=== PATIENT | female | born 1950 | race African-American/Black ===

== ENCOUNTER 2016-08-30 19:50 | Emergency (ER) | payer MEDICARE ==
--- NOTE | ~2016-08-30 | EKG ---
PATIENT: GABBY ROMAN UNIT #: [id number] Ventricular Rate: 97 BPM Atrial Rate: 97 BPM P-R Interval: 156 ms QRS Duration: 78 ms Q-T Interval: 366 ms QTC Calculation(Bezet): 464 ms P [place]: 68 degrees Calculated T [place]: 43 degrees Diagnosis Line: Normal sinus rhythm Diagnosis Line: T wave abnormality, consider anterolateral Diagnosis Line: ischemia Diagnosis Line: Abnormal ECG Diagnosis Line: When compared with ECG of 11-NOV-2014 07:38, Diagnosis Line: No significant change was found Diagnosis Line: Confirmed by RENE GAR MD ([id number]) on 09/02/2016 Diagnosis Line: 10:48:34 PM INTERPRETING MD: RIN MAURO
[~2016-08-30 19:50] MED LIST: ACCUPRIL; ACETAMINOPHEN PO; ACYCLOVIR PO; ALPRAZOLAM0.25 MG PO; AMARYL PO; AMLODIPINE BESY10 MG PO; ANTIVERT PO; ASPIRIN PO; ASPIRIN81 M2 PO; BACTRIM DS TABL1 TA1 PO; CARVEDILOL12.5 MG; CARVEDILOL12.5 MG PO; CARVEDILOL6.25 MG PO; CELEXA PO; CELEXA20 MG PO; CIPRO PO; COREG PO; COREG6.25 MG PO; EFFIENT10 MG PO; FAMVIR500 MG PO; GLUCOPHAGE500 MG PO; GLUCOPHAGE850 MG PO; GLUCOTROL XL; GLUCOTROL XL PO; HCTZ PO; HYDRALAZINE HCL25 MG PO; HYDROCHLOROTHIA25 MG PO; HYDROXYZINE HCL25 M1 PO; HYDROXYZINE PAM25 MG PO; INDOMETHACIN75 MG PO; LISINOPRIL PO; LISINOPRIL20 MG PO; MAVIK4 MG; METFORMIN; METFORMIN HCL500 M2 PO; METFORMIN HCL850 MG PO; METFORMIN PO; NAPROXEN500 M1 PO; NORVASC10 MG PO; PHENERGAN25 MG PO; PIOGLITAZONE15 MG PO; PLAVIX PO; PREDNISONE PO; PROTONIX PO; PYRIDIUM PO; RANITIDINE HCL150 M1 PO; SIMVASTATIN20 MG PO; SIMVASTATIN40 MG PO; ST JOSEPH ASPIR81 M1 PO; VICODIN 5/500 T1 TAB PO; ZANTAC150 M1 PO; ZITHROMAX PO; ZOCOR PO; ZYRTEC
[2016-08-30 20:02] LABS: BASOPHIL# 0.1 X10e3 (0-0.3); BASOPHIL% 1.4 % (0-2.5); DIFF IND NO; EOSINOPHIL# 0.1 X10e3 (0-0.7); EOSINOPHIL% 1.3 % (0.0-7.0); HEMATOCRIT 41.3 % (35.0-45.0); HEMOGLOBIN 12.6 gm/dL (12.0-16.0); LYMPHOCYTE# 1.7 X10e3 (1.0-3.5); LYMPHOCYTE% 25.3 % (17.0-45.0); MEAN CELL VOLUME 71.8 FL (83-96); MEAN CORPUSCULAR HGB CONC 30.6 g/dL (30-36); MEAN PLATELET VOLUME 9.4 FL (6.5-11.5); MONOCYTE# 0.4 X10e3 (0-1.0); MONOCYTE% 6.5 % (3.0-12.0); NEUTROPHIL# 4.3 X10e3 (1.5-7.1); NEUTROPHIL% 65.5 % (40-75); PLATELET COUNT 226 X10e3 (140-420); RED BLOOD COUNT 5.75 X10e (3.90-5.30); RED CELL DISTRIBUTION WIDTH 13.8 % (11.0-15.5); WHITE BLOOD COUNT 6.6 X10e3 (4.0-10.5)
[2016-08-30 20:11] LABS: URINE SOURCE CLEAN CATCH
[2016-08-30 20:19] LABS: URINE APPEARANCE CLEAR; URINE BILIRUBIN NEG (NEG); URINE BLOOD NEG (NEG); URINE COLOR YELLOW; URINE GLUCOSE NEG (NEG); URINE KETONE NEG (NEG); URINE LEUKOCYTE ESTERASE TRACE (NEG); URINE NITRATE NEG (NEG); URINE PH 6.5 (5-8); URINE PROTEIN NEG (NEG); URINE SPECIFIC GRAVITY 1.008 (1.003-1.035); URINE UROBILINOGEN 0.2 MG/DL (NEG)
[2016-08-30 20:22] LABS: ALBUMIN SERUM 4.2 g/dL (3.5-5.0); BILIRUBIN, DIRECT 0.1 mg/dL (0.0-0.2); BILIRUBIN,INDIRECT 0.6 mg/dL (0.0-0.9); BILIRUBIN,TOTAL 0.7 mg/dL (0.2-2.0); BUN/CREATININE RATIO 26.66; CALCIUM SERUM 9.8 mg/dL (8.4-10.2); CREATININE SERUM 0.6 mg/dL (0.6-1.4); GLOM FILT RATE Estimated 110.1 mL/min (>60); POTASSIUM 4.2 mmol/L (3.5-5.1)
[2016-08-30 20:22] LABS: URBCS1 AUWI 0-2 /[HPF] (0-2); URINE BACTERIA AUWI NEG (NEGATIVE); URINE SQUAMOUS EPITHELIAL CELL NONE SEEN /[HPF]; UWBCS1 AUWI 0-2 (0-5)
[2016-08-30 20:25] LABS: CULTURE INDICATED? NO
[2016-08-30 21:16] LABS: POC - CKMB <1.0 ng/mL (0.0-7.9); POC - TROPONIN <0.05 ng/mL (<=0.05)
== END 2016-08-30 22:05 | disposition home or self-care (01) ==
LOC: CED 19:50
PROVIDERS: Emergency Medicine; Physician Assistant Medical
DX: K21.9 Gastro-esophageal reflux disease without esophagitis (principal); B02.9 Zoster without complications; I10 Essential (primary) hypertension; E11.9 Type 2 diabetes mellitus without complications; Z90.49 Acquired absence of other specified parts of digestive tract; Z90.710 Acquired absence of both cervix and uterus; Z98.890 Other specified postprocedural states
CPT/HCPCS: 36415; 80048; 80076; 81003; 82150; 82553; 82947; 83690; 84484; 85025; 93005; 99284